=== PATIENT | female | born 1950 | race Caucasian/White ===

== ENCOUNTER 2016-10-19 08:29 | Inpatient (IN) | payer OTHER ==
[2016-10-08 10:51] VITALS: BMI 29.2
--- NOTE | 2016-10-19 07:43 | HP ---
Admitting History and Physical - Admission Chief Complaint: left hip osteoarthritis x years History of Present Illness: 66 year old female presents in regard to her left hip. Longstanding history of left hip osteoarthritis. Patient complains of left hip pain, limited ROM and difficulty ambulating. Patient has failed conservative treatment including PO medication and activity modification. At this point, patient would like to proceed with a left total hip arthroplasty (MAKOplasty). - Past Medical History Heme/Onc: Yes: B12 Deficiency Endocrine: Yes: Hypothyroidism, Osteopenia - Advance Directives Advance Directives: Yes: Health Care Proxy - Smoking History Smoking history: Former smoker Have you smoked in the past 12 months: No If you are a former smoker, when did you quit?: 1989 - Alcohol/Substance Use Hx Alcohol Use: No Home Medications - Allergies Allergies/Adverse Reactions: Allergies Allergy/AdvReac Type Severity Reaction Status Date / Time latex Allergy Verified 10/08/16 10:33 pet dander Allergy Uncoded 10/08/16 10:51 - Home Medications Home Medications: Ambulatory Orders Calcium/D3/Mag Ox/Dice Maker/Félix/Zn [Caltrate+D3 Plus Mineral Minis] 1 each PO BID 05/16 Cholecalciferol (Vitamin D3) [Vitamin D3] 5,000 unit PO DAILY 10/08/16 Chromium Picolinate 200 mcg PO DAILY 10/08/16 Cyanocobalamin (Vitamin B-12) [Vitamin B12] 5,000 mcg PO DAILY 10/08/16 Levothyroxine [Synthroid -] 125 mcg PO DAILY 10/08/16 [place]-3S/Dha/Epa/Fish Oil [[place]-3 Fish Oil 1,000 mg Sfgl] 1 each PO BID Ubidecarenone/Vitamin E Mixed [Aml55-Rnj E 200 mg-20 Unit Sfg] 1 each PO DAILY 10/08/16 Review of Systems - Review of Systems Musculoskeletal: reports: Decreased ROM (Left hip), Joint Pain Physical Examination Constitutional: Yes: Well Nourished, No Distress Eyes: Yes: Conjunctiva Clear HENT: Yes: Atraumatic, Normocephalic Neck: Yes: Supple Cardiovascular: Yes: Regular Rate and Rhythm Respiratory: Yes: Regular Gastrointestinal: Yes: Soft ...Rectal Exam: Yes: Deferred Musculoskeletal: Yes: Joint Stiffness (limited ROM left hip) Assessment/Plan 66 year old female with longstanding left hip osteoarthritis. Patient has failed conservative treatment. Proceed with a left total hip arthroplasty ( MAKOplasty).
[2016-10-19] MEDS ORDERED: ROPIVICAINE 0.2%/MORPH PF/KETOROLAC - 51ML DISP.SYRINGE IA ONE ×3 (10:00→14:52)
[2016-10-19] MEDS ORDERED: TRANEXAMIC ACID 1000 MG/10 ML VIAL IVPUSH ONE (10:00)
[2016-10-19] MEDS ORDERED: CEFAZOLIN 1 GM/D5W 50 ML IVPB ONE (10:00)
[2016-10-19] MEDS: GABAPENTIN 300 MG CAPSULE (FP) PO ONE ×2 (10:15→15:39)
[2016-10-19] MEDS: CELECOXIB 200 MG CAPSULE PO ONE ×2 (10:15→15:39)
[2016-10-19] MEDS: oxyCODONE HCL 10 MG SUSTAINED ACTING TABLET PO ONE ×2 (10:15→15:39)
[2016-10-19] MEDS ORDERED: VANCOMYCIN 1,000 MG VIAL (RESTRICTED TO ID ONLY) ONE (10:24)
[2016-10-19] MEDS ORDERED: ceFAZolin SODIUM 1 GM VIAL ONE ×2 (10:24→11:58)
[2016-10-19] MEDS ORDERED: TRANEXAMIC ACID 1000 MG/10 ML VIAL ONE (10:24)
[2016-10-19] MEDS ORDERED: DEXAMETHASONE SOD PHOSPHATE/PF 10 MG/ML SDV ONE (10:36)
[2016-10-19] MEDS ORDERED: ROPIVACAINE HCL 0.5% 30ML VIAL ONE (10:37)
[2016-10-19] MEDS ORDERED: MIDAZOLAM HCL 2 MG/2 ML SINGLE DOSE VIAL ONE (10:37)
[2016-10-19] MEDS ORDERED: BUPIVACAINE HCL/PF 0.5% (5MG/ML) 10 ML VIAL ONE (11:14)
[2016-10-19] MEDS ORDERED: PROPOFOL 20 ML ONE ×2 (11:16)
[2016-10-19] MEDS ORDERED: ePHEDrine SULFATE 50 MG/1 ML AMPULE ONE (12:03)
[2016-10-19] MEDS ORDERED: SUCCINYLCHOLINE CHLORIDE 200 MG/10 ML VIAL ONE (12:05)
[2016-10-19] MEDS ORDERED: ONDANSETRON 4 MG/2 ML VIAL ONE ×2 (12:17)
[2016-10-19] MEDS ORDERED: oxyCODONE HCL 5 MG TABLET PO PRN ×2 (12:41)
[2016-10-19] MEDS ORDERED: SODIUM CHLORIDE 0.9% P/F 10 ML VIAL IJ ONE (13:54)
[2016-10-19] MEDS ORDERED: TRANEXAMIC ACID 1000 MG/10 ML VIAL IVPB ONE (14:19)
[2016-10-19] MEDS ORDERED: VANCOMYCIN 1,000 MG VIAL (RESTRICTED TO ID ONLY) IVPB ONE (14:20)
--- NOTE | 2016-10-19 15:08 | OP ---
Operative Note - Note: Operative Date: 10/19/16 Pre-Operative Diagnosis: left hip OA Operation: left DONNA Post-Operative Diagnosis: Same as Pre-op Surgeon: Messi Bonilla Curing Machine Operator: Amy Shook Anesthesia: Spinal Estimated Blood Loss (mls): 200
[2016-10-19] MEDS ORDERED: MAGNESIUM HYDROX 2400MG/30ML ORAL SUSPENSION 30 ML CUP PO PRN (15:13)
[2016-10-19] MEDS ORDERED: MAG HYDROX/AL HYDROX/SIMETH 30 ML UNIT-DOSE CUP PO PRN (15:13)
[2016-10-19] MEDS ORDERED: LACTATED RINGERS SOLUTION 1,000 ML IV SCH (15:15)
[2016-10-19] MEDS ORDERED: KETOROLAC TROMETHAMINE 30 MG/1 ML VIAL ONE (15:36)
[2016-10-19] MEDS ORDERED: traMADol HCL 50 MG TABLET ONE (15:37)
[2016-10-19] MEDS: KETOROLAC TROMETHAMINE 30 MG/1 ML VIAL IVPUSH SCH ×2 (15:40→20:21)
[2016-10-19] MEDS ORDERED: ONDANSETRON 4 MG/2 ML VIAL IVPB PRN (15:40)
[2016-10-19] MEDS: traMADol HCL 50 MG TABLET PO SCH ×2 (15:54→20:23)
[2016-10-19] MEDS ORDERED: ACETAMINOPHEN 1000 MG/100 ML VIAL (NON FORMULARY) IVPB ONE (16:00)
[2016-10-19] MEDS: CEFAZOLIN 1 GM/D5W 50 ML IVPB SCH (20:21)
--- NOTE | 2016-10-19 20:31 | SPEC ---
DATE OF OPERATION: 10/19/2016 PREOPERATIVE DIAGNOSIS: Left hip osteoarthritis. POSTOPERATIVE DIAGNOSIS: Left hip osteoarthritis. PROCEDURE: Left total hip replacement with Makoplasty, robotic navigation. ATTENDING: Mere Dorsey M.D. ASSEMBLER FISHING FLOATS: Joann Gonzalez ANESTHESIA: Spinal plus sedation. ESTIMATED BLOOD LOSS: 200 mL. COMPLICATIONS: None. SPECIMENS: Resected bone was sent for pathology analysis. DISPOSITION: The patient was transferred to the PACU in stable condition. IMPLANTS USED: Angus Accolade 2 size 5, 127-degree femoral component, 48-mm acetabular component, MDM bipolar head ball, and 40-mm and 16-mm acetabular component screws. INDICATION: This is a 66-year-old female who presented to the office complaining of severe hip pain. She was seen and examined by Dr. Dorsey, and diagnosed with severe left hip osteoarthritis. She had failed conservative management with medications and physical therapy and was indicated for a left total hip replacement. The risks, benefits, and alternatives of the procedure were explained to the patient and her in great detail using the video conference publications designer system. They elected to proceed with the surgery. On the day of surgery, the patient was taken to the operating room and placed on the OR table. Spinal anesthesia was administered by the anesthesiologist. The patient was then positioned in the lateral decubitus position on the table and all bony prominences were padded. An axillary roll was placed. The operative hip was then prepped and draped in the usual sterile fashion and intravenous antibiotics were given for infection prophylaxis. A surgical time-out was then performed with the team, and the patients identity, procedure, side, availability of implants, and the administration of antibiotics was confirmed. An approximately 15cm longitudinal incision was made through the skin centered on the greater trochanter of the hip. This dissection was carried down through the subcutaneous tissues to the deep fascia. This fascia was then incised and a cobra was placed around the inferior femoral neck. Electrocautery was used to reflect the anterior 40% of the gluteus medius and minimus starting at the musculotendinous junction and leaving a cuff for closure. This was reflected to reveal the capsule of the hip joint. An anterior capsulectomy was performed and the femoral head and neck was visualized. Grade 4 changes were noted diffusely throughout the joint. At this point, three small stab incisions were made superior to the main incision along the iliac crest. Three self-drilling Arnul[place] pins were then placed and the [employer] pelvic array was attached. Reference points on the limb were then entered into the robotic device and the limb length deficiency, offset, and femoral neck resection level were then calculated by the software. The hip was then dislocated with traction and external rotation, an oscillating saw was used to make the femoral neck cut at the level previously templated, and the femoral head was removed. Attention was then turned to the acetabulum. Retractors were then placed around the acetabulum and the labrum was removed. An acetabular checkpoint pin and the [employer] software was used to register the contours of the acetabulum. The acetabulum was then reamed in a single stage to the preoperatively templated size using the [employer] robotic arm. The appropriately sized cup was then impacted and had solid fixation as well as the preset inclination and version of 40 and 20 degrees, respectively. A polyethylene liner was then placed in the cup. Attention was then turned back to the femur, which was externally rotated for improved visualization. A femoral neck elevator was used to present the femoral neck cut, a box osteotome was used to enter the femoral canal, and a canal finder was used to go down the femoral shaft. The [place] broaches were used sequentially until the optimal scratch fit was achieved. This correlated to the preoperatively templated size. From here, several different offset head and neck configurations were tested until excellent stability and length was obtained. These measurements were quantified using the [employer] software. All trial components were then removed, the femur was copiously irrigated, and the final components were placed. Leg length and stability were checked again and found to be excellent. Irrigation was performed again. Wound closure was started by repairing the abductor muscles with a No. 2 Fiberwire stitch in a [place] configuration passed through bone tunnels in the greater trochanter and tied over a bony bridge. This repair was then reinforced with a 0 VLoc 180 barbed suture. Next, No. 1 Polysorb and 0 VLoc 180 was used to close the fascia. The deep subcutaneous tissue was closed with No. 1 Polysorb sutures, and 2-0 Polysorb was used for the superficial subcutaneous tissue. The skin was closed using both 3-0 VLoc 90 suture in a running subcuticular fashion and SwiftSet skin adhesive. The [place] array and pins were removed from the iliac crest and the stab incision sites were irrigated and closed with 4-0 Polysorb sutures and SwiftSet skin adhesive. Once this was completed a sterile dressing was applied. The patient was then awakened and taken to the PACU in stable condition. MERE DORSEY M.D. [id number]
[2016-10-19] MEDS: ASCORBIC ACID 500 MG TABLET (FP) PO SCH (21:27)
[2016-10-19] MEDS: SENNOSIDES/DOCUSATE COMBO (SENNA PLUS) TABLET (UD) PO SCH (21:27)
[2016-10-19] MEDS: ACETAMINOPHEN 325 MG TABLET (FP) PO SCH (21:27)
[2016-10-19] MEDS: GABAPENTIN 300 MG CAPSULE (FP) PO SCH (21:27)
[2016-10-19] MEDS: CELECOXIB 200 MG CAPSULE PO SCH (21:27)
[2016-10-19] MEDS: oxyCODONE HCL 10 MG SUSTAINED ACTING TABLET PO SCH (21:28)
[2016-10-19] MEDS ORDERED: GABAPENTIN 300 MG CAPSULE (FP) PO SCH (22:00)
[2016-10-20] MEDS: KETOROLAC TROMETHAMINE 30 MG/1 ML VIAL IVPUSH SCH ×2 (02:40→08:28)
[2016-10-20] MEDS: traMADol HCL 50 MG TABLET PO SCH ×4 (02:40→21:12)
[2016-10-20] MEDS: CEFAZOLIN 1 GM/D5W 50 ML IVPB SCH (03:04)
[2016-10-20] MEDS: ACETAMINOPHEN 325 MG TABLET (FP) PO SCH ×4 (03:09→21:12)
[2016-10-20] MEDS: LEVOTHYROXINE NA 125 MCG TABLET (FP) PO SCH (06:21)
[2016-10-20] MEDS: ASPIRIN 325 MG TABLET PO SCH (08:28)
[2016-10-20 08:42] LABS: CALCIUM 8.9 mg/dl (8.4-10.2); CREATININE 0.9 mg/dl (0.6-1.3)
[2016-10-20 08:48] LABS: MCH 29.8 pg (25.7-33.7); MCHC 32.8 g/dl (32.0-36.0); MEAN PLT VOLUME 7.7 fl (7.5-11.1); PLATELET COUNT 295 K/MM3 (134-434); RDW 11.7 % (11.6-15.6); WHITE BLOOD COUNT 9.4 K/mm3 (4.0-10.0)
--- NOTE | 2016-10-20 09:42 | PN ---
Progress Note (short form) - Note Progress Note: 66 POD1 s/p left total hip replacement under spinal anesthetic doing well. Pt states that pain is well controlled, AVSS, pt reports no anesthetic complications. Sensory and motor function intact in both lower extremities.
[2016-10-20] MEDS: MULTIVITAMINS (DAILY MVI) TABLET (FP) PO SCH (09:54)
[2016-10-20] MEDS: ASCORBIC ACID 500 MG TABLET (FP) PO SCH ×2 (09:54→21:12)
[2016-10-20] MEDS: SENNOSIDES/DOCUSATE COMBO (SENNA PLUS) TABLET (UD) PO SCH ×2 (09:55→21:11)
[2016-10-20] MEDS: oxyCODONE HCL 10 MG SUSTAINED ACTING TABLET PO SCH ×2 (09:56→22:36)
[2016-10-20] MEDS: PANTOPRAZOLE 40 MG TABLET (FP) PO SCH (09:56)
[2016-10-20] MEDS: CELECOXIB 200 MG CAPSULE PO SCH ×2 (09:57→21:12)
[2016-10-20] MEDS: GABAPENTIN 300 MG CAPSULE (FP) PO SCH ×2 (09:58→21:13)
[2016-10-21] MEDS: traMADol HCL 50 MG TABLET PO SCH ×3 (03:00→10:06)
[2016-10-21] MEDS: ACETAMINOPHEN 325 MG TABLET (FP) PO SCH ×2 (04:00→10:06)
[2016-10-21 05:33] VITALS: BP 121/58; PULSE 74; TEMP 98.6
[2016-10-21] MEDS: LEVOTHYROXINE NA 125 MCG TABLET (FP) PO SCH (06:44)
[2016-10-21] MEDS: ASPIRIN 325 MG TABLET PO SCH (07:41)
--- NOTE | 2016-10-21 08:29 | PN ---
Progress Note (short form) - Note Progress Note: This note is for Wednesday10/20/16 Pt seen and examined by me Wednesday evening. Pt's daughter Judith used as commercial green building designer on iPad using [employer]. Doing well. No complaints. Pain 09/08. Walked several hundred feet with PT. AVSS Laboratory Tests 10/20/16 10/20/16 08:05 08:05 WBC 9.4 Hgb 11.4 Hct 34.7 Plt Count 295 Sodium 136 Potassium 4.4 Chloride 102 Carbon Dioxide 28 Anion Gap 6 L BUN 20 H Creatinine 0.9 Random Glucose 109 H Calcium 8.9 Gen: NAD LLE: c/d/i, NVID A/P 66yo female POD#1 s/p L DONNA 1. PT/OOB - WBAT LLE 2. Plan for d/c home tomorrow
--- NOTE | 2016-10-21 08:30 | PN ---
Progress Note (short form) - Note Progress Note: This note is for Wednesday10/21/16 Pt seen and examined this morning. Pad/paper used for communication. Doing well. No complaints. AVSS Selected Entries 10/21/16 05:32 Temperature 98.6 F Pulse Rate 74 Respiratory 19 Rate Blood Pressure 121/58 O2 Sat by Pulse 96 Oximetry (%) LABS PENDING Gen: NAD LLE: c/d/i, NVID A/P 66yo female POD#2 s/p L DONNA 1. PT/OOB - WBAT LLE 2. d/c home today
[2016-10-21 08:32] LABS: MCH 29.1 pg (25.7-33.7); MCHC 32.1 g/dl (32.0-36.0); MEAN CELL VOLUME 90.6 fl (80-96); PLATELET COUNT 278 K/MM3 (134-434); RDW 11.7 % (11.6-15.6); WHITE BLOOD COUNT 8.1 K/mm3 (4.0-10.0)
[2016-10-21 09:06] LABS: CALCIUM 8.6 mg/dl (8.4-10.2); CREATININE 0.8 mg/dl (0.6-1.3)
[2016-10-21] MEDS: oxyCODONE HCL 10 MG SUSTAINED ACTING TABLET PO SCH (10:06)
[2016-10-21] MEDS: CELECOXIB 200 MG CAPSULE PO SCH (10:07)
[2016-10-21] MEDS: GABAPENTIN 300 MG CAPSULE (FP) PO SCH (10:08)
[2016-10-21] MEDS: PANTOPRAZOLE 40 MG TABLET (FP) PO SCH (10:08)
[2016-10-21] MEDS: SENNOSIDES/DOCUSATE COMBO (SENNA PLUS) TABLET (UD) PO SCH (10:08)
[2016-10-21] MEDS: MULTIVITAMINS (DAILY MVI) TABLET (FP) PO SCH (10:08)
[2016-10-21] MEDS: ASCORBIC ACID 500 MG TABLET (FP) PO SCH (10:08)
--- NOTE | 2016-10-22 16:19 | PATH ---
Surgical Pathology Report Patient Name: ELIDA DAWKINS Med. Rec. #: [id number] /Age/Gender: 1950 (Age: 66) / F Account: [id number] Location: [facility] Taken: 10/20/2016 Received: 10/20/2016 Reported: 10/22/2016 Physicians: Messi Bonilla M.D. Specimen(s) Received LEFT HIP FEMORAL HEAD Clinical History Left hip osteoarthritis Final Diagnosis FEMORAL HEAD, LEFT, TOTAL HIP REPLACEMENT (MAKOPLASTY): DEGENERATIVE JOINT DISEASE. Electronically Signed Bjorn Hannah M.D. Gross Description Received in formalin, labeled "left femoral head" is a 4.0 x 3.8 x 3.8 cm. femoral head with a 1 cm in length portion of femoral neck attached. The margin of resection is smooth. There is a 4.5 cm in greatest dimension area of eburnation present. The remaining articular surface is everett-yellow and granular. The underlying trabecular bone is everett-yellow and heterogeneous. A sales representative door to door section is submitted in one cassette, following decalcification. 10/21/201610/21/2016
== END 2016-10-21 13:46 | disposition home health service (06) | DRG 470 ==
LOC: FM/S 08:29
PROVIDERS: ADMIT Student in an Organized Health Care Education/Training Program; ATTEND Student in an Organized Health Care Education/Training Program
PROC: 8E0W0CZ Robotic Assisted Procedure of Trunk Region, Open Approach (ICD-10-PCS; 2016-10-19)
PROC: 0SRB0JZ Replacement of Left Hip Joint with Synthetic Substitute, Open Approach (ICD-10-PCS; principal; 2016-10-19 12:20)
DX: M16.12 Unilateral primary osteoarthritis, left hip (principal); E03.9 Hypothyroidism, unspecified; M85.88 Other specified disorders of bone density and structure, other site; E53.8 Deficiency of other specified B group vitamins; Z87.891 Personal history of nicotine dependence
CPT/HCPCS: 36415; 73502-TC-LT; 80048; 85027; 88304-TC; 88311-TC; 94010; 94760; 97116-GP; 97162-PG

== ENCOUNTER 2018-06-16 09:07 | Inpatient (IN) | payer OTHER ==
[2018-06-06 14:18] VITALS: BMI 29.3
--- NOTE | 2018-06-16 07:48 | HP ---
Admitting History and Physical - Admission Chief Complaint: right hip osteoarthritis x years History of Present Illness: 67 year old female presents today regarding her right hip. Longstanding history of right hip osteoarthritis. Patient complains of pain, limited ROM, difficulty ambulating and difficulty with ADLs. Patient has failed conservative treatment measures including PO medication, activity medication, injections and exercise program. At this point, patient would like to proceed with a right total hip arthroplasty, MAKOplasty. History Source: Patient - Past Medical History Heme/Onc: Yes: B12 Deficiency Endocrine: Yes: Hypothyroidism, Osteopenia - Past Surgical History Additional Past Surgical History: See written history & physical. - Smoking History Smoking history: Former smoker Have you smoked in the past 12 months: No If you are a former smoker, when did you quit?: 1989 - Alcohol/Substance Use Hx Alcohol Use: No Home Medications - Allergies Allergies/Adverse Reactions: Allergies Allergy/AdvReac Type Severity Reaction Status Date / Time latex Allergy Rash Verified 06/06/18 13:54 pet dander Allergy Uncoded 10/19/16 09:41 - Home Medications Home Medications: Ambulatory Orders Calcium/D3/Mag Ox/[place]/Félix/Zn [Caltrate+D3 Plus Mineral Minis] 1 each PO BID 05/16 Cholecalciferol (Vitamin D3) [Vitamin D3] 5,000 unit PO DAILY 10/08/16 Chromium Picolinate 200 mcg PO DAILY 10/08/16 Cyanocobalamin (Vitamin B-12) [Vitamin B12] 5,000 mcg PO DAILY 10/08/16 Levothyroxine [Synthroid -] 125 mcg PO DAILY 10/08/16 [place]-3S/Dha/Epa/Fish Oil [[place]-3 Fish Oil 1,000 mg Sfgl] 1 each PO BID Ubidecarenone/Vitamin E Mixed [Dqi23-Nuh E 200 mg-20 Unit Sfg] 1 each PO DAILY 10/08/16 Review of Systems - Review of Systems Musculoskeletal: reports: Decreased ROM (right hip), Joint Pain (right hip) Physical Examination Constitutional: Yes: Well Nourished, No Distress Eyes: Yes: Conjunctiva Clear HENT: Yes: Atraumatic, Normocephalic Neck: Yes: Supple Cardiovascular: Yes: Regular Rate and Rhythm Respiratory: Yes: Regular Gastrointestinal: Yes: Soft ...Rectal Exam: Yes: Deferred Musculoskeletal: Yes: Joint Stiffness (right hip) Assessment/Plan 67 year old female presents today regarding her right hip. Longstanding history of right hip osteoarthritis. Patient complains of pain, limited ROM, difficulty ambulating and difficulty with ADLs. Patient has failed conservative treatment measures including PO medication, activity medication, injections and exercise program. At this point, patient would like to proceed with a right total hip arthroplasty, MAKOplasty. Pros, cons, risks, benefits and alternatives of a right total hip arthroplasty, MAKOplasty, were discussed with the patient at length. Patient confirms his understanding and consents to proceed with a right total hip arthroplasty, MAKOplasty.
[~2018-06-16 09:07] MED LIST: CEFAZOLIN 2 GM in DEXTROSE 5%-WATER - 50 ML IVPB ONE; PANTOPRAZOLE 40 MG TABLET (FP) PO ONE; ROPIVICAINE 0.2%/MORPH PF/KETOROLAC - 51ML DISP.SYRINGE IA ONE; TRANEXAMIC ACID 1000 MG/10 ML VIAL IVPUSH ONE
[2018-06-16] MEDS ORDERED: PANTOPRAZOLE 40 MG TABLET (FP) ONE (10:19)
[2018-06-16] MEDS ORDERED: oxyCODONE HCL 10 MG SUSTAINED ACTING TABLET ONE (10:19)
[2018-06-16] MEDS ORDERED: CELECOXIB 200 MG CAPSULE ONE (10:20)
[2018-06-16] MEDS ORDERED: GABAPENTIN 300 MG CAPSULE (FP) ONE (10:20)
[2018-06-16] MEDS: GABAPENTIN 300 MG CAPSULE (FP) PO ONE ×2 (10:50→18:03)
[2018-06-16] MEDS: CELECOXIB 200 MG CAPSULE PO ONE ×2 (10:50→18:03)
[2018-06-16] MEDS: oxyCODONE HCL 10 MG SUSTAINED ACTING TABLET PO ONE ×2 (10:50→18:03)
[2018-06-16] MEDS ORDERED: DEXAMETHASONE SOD PHOSPHATE/PF 10 MG/ML SDV ONE (11:34)
[2018-06-16] MEDS ORDERED: BUPIVACAINE HCL/PF (5 MG/ML) 30 ML VIAL IJ ONE (11:35)
[2018-06-16] MEDS ORDERED: LIDOCAINE 1% P/F 10 MG/ML VIAL ONE (11:35)
[2018-06-16] MEDS ORDERED: MIDAZOLAM HCL 2 MG/2 ML SINGLE DOSE VIAL ONE (11:35)
[2018-06-16] MEDS ORDERED: TRANEXAMIC ACID 1000 MG/10 ML VIAL ONE (11:44)
[2018-06-16] MEDS ORDERED: VANCOMYCIN 1,000 MG VIAL (RESTRICTED TO ID ONLY) ONE (11:44)
[2018-06-16] MEDS ORDERED: ceFAZolin SODIUM 1 GM VIAL ONE ×3 (11:44→18:04)
[2018-06-16] MEDS ORDERED: ROPIVICAINE 0.2%/MORPH PF/KETOROLAC - 51ML DISP.SYRINGE IA ONE ×2 (11:52→14:36)
[2018-06-16] MEDS ORDERED: SODIUM CHLORIDE 0.9% P/F 10 ML VIAL IJ ONE (12:36)
[2018-06-16] MEDS ORDERED: DEXAMETHASONE SOD PHOSPHATE 4 MG/1 ML VIAL ONE (12:41)
[2018-06-16] MEDS ORDERED: ONDANSETRON 4 MG/2 ML VIAL ONE (12:41)
[2018-06-16] MEDS ORDERED: DEXMEDETOMIDINE HCL 200 MCG/2 ML ML IVPB ONE (13:43)
[2018-06-16] MEDS ORDERED: TRANEXAMIC ACID 1000 MG/10 ML VIAL IVPB ONE (14:36)
[2018-06-16] MEDS ORDERED: VANCOMYCIN 1,000 MG VIAL (RESTRICTED TO ID ONLY) IVPB ONE (14:37)
[2018-06-16] MEDS ORDERED: ePHEDrine SULFATE 50 MG/1 ML AMPULE ONE (14:59)
[2018-06-16] MEDS ORDERED: ONDANSETRON 4 MG/2 ML VIAL IVPUSH PRN ×2 (15:46→16:26)
[2018-06-16] MEDS ORDERED: oxyCODONE HCL 5 MG TABLET PO PRN ×2 (15:47)
--- NOTE | 2018-06-16 16:22 | OP ---
Operative Note - Note: Operative Date: 06/16/18 Pre-Operative Diagnosis: right hip OA Operation: Right ADAM DONNA Post-Operative Diagnosis: Same as Pre-op Surgeon: Messi Bonilla Electrotyper Helper: Amy Shook Anesthesia: Spinal Estimated Blood Loss (mls): 250
[2018-06-16] MEDS ORDERED: MAG HYDROX/AL HYDROX/SIMETH 30 ML UNIT-DOSE CUP PO PRN (16:26)
[2018-06-16] MEDS ORDERED: MAGNESIUM HYDROX 2400MG/30ML ORAL SUSPENSION 30 ML CUP PO PRN (16:26)
[2018-06-16] MEDS ORDERED: LACTATED RINGERS SOLUTION 1,000 ML IV SCH (16:30)
[2018-06-16] MEDS ORDERED: ACETAMINOPHEN 1000 MG/100 ML VIAL (NON FORMULARY) IVPB ONE ×2 (16:36→16:59)
--- NOTE | 2018-06-16 16:49 | SPEC ---
DATE OF OPERATION: 06/16/2018 PREOPERATIVE DIAGNOSIS: Right hip osteoarthritis. POSTOPERATIVE DIAGNOSIS: Right hip osteoarthritis. PROCEDURE: Right total hip replacement with MAKOplasty robotic navigation. ATTENDING: Mere Dorsey MD TUBER MACHINE OPERATOR: MICHELLE Gonzalez ANESTHESIA: Spinal plus sedation. ESTIMATED BLOOD LOSS: 250 mL COMPLICATIONS: None. DISPOSITION: The patient was transferred to the PACU in stable condition. IMPLANTS USED: [place] Accolade II size 6 femoral component, Angus Tritanium 48-mm acetabular component with 30- and 25-mm acetabular screws, MDM bipolar head ball. INDICATIONS: This is a 67-year-old female who is a long-time patient and presented with bilateral hip severe osteoarthritis. She underwent a left total hip replacement with MAKOplasty robotic navigation in September 2016, and did well. She continued to have right hip pain and ambulatory dysfunction which was not effectively treated with nonoperative treatments. She was, therefore, indicated for a right total hip replacement with MAKOplasty robotic navigation. The risks, benefits, and alternatives to the procedure were explained to the patient in great detail, and she elected to proceed with surgery. On the day of surgery, the patient was taken to the operating room and placed on the OR table. Spinal anesthesia was administered by the anesthesiologist. The patient was then positioned in the lateral decubitus position on the table and all bony prominences were padded. An axillary roll was placed. The operative hip was then prepped and draped in the usual sterile fashion and intravenous antibiotics were given for infection prophylaxis. A surgical time-out was then performed with the team, and the patients identity, procedure, side, availability of implants, and the administration of antibiotics were confirmed. An approximately 15-cm longitudinal incision was made through the skin centered on the greater trochanter of the hip. This dissection was carried down through the subcutaneous tissues to the deep fascia. This fascia was then incised and a Cobra was placed around the inferior femoral neck. Electrocautery was used to reflect the anterior 40% of the gluteus medius and minimus starting at the musculotendinous junction and leaving a cuff for closure. This was reflected to reveal the capsule of the hip joint. An anterior capsulectomy was performed and the femoral head and neck were visualized. Grade 4 changes were noted diffusely throughout the joint. At this point, three small stab incisions were made superior to the main incision along the iliac crest. Three self-drilling Steinmann pins were then placed and the prollie pelvic array was attached. Reference points on the limb were then entered into the robotic device and the limb length deficiency, offset, and femoral neck resection level were then calculated by the software. The hip was then dislocated with traction and external rotation. An oscillating saw was used to make the femoral neck cut at the level previously templated, and the femoral head was removed. Attention was then turned to the acetabulum. Retractors were then placed around the acetabulum and the labrum was removed. An acetabular checkpoint pin and the [employer]ie software were used to register the contours of the acetabulum. The acetabulum was then reamed in a single stage to the preoperatively templated size using the [place] robotic arm. The appropriately sized cup was then impacted and had solid fixation as well as the preset inclination and version of 40 and 20 degrees, respectively. A polyethylene liner was then placed in the cup. Attention was then turned back to the femur, which was externally rotated for improved visualization. A femoral neck elevator was used to present the femoral neck cut, a box osteotome was used to enter the femoral canal, and a canal finder was used to go down the femoral shaft. The [place] broaches were used sequentially until the optimal scratch fit was achieved. This correlated with the preoperatively templated size. From here, several different offset head and neck configurations were tested until excellent stability and length were obtained. These measurements were quantified using the prollie software. All trial components were then removed, the femur was copiously irrigated, and the final components were placed. Leg length and stability were checked again and found to be excellent. Irrigation was performed again. Wound closure was started by repairing the abductor muscles with a no. 2 FiberWire stitch in a [place] configuration passed through bone tunnels in the greater trochanter and tied over a bony bridge. This repair was then reinforced with a 0 V-Loc 180 barbed suture. Next, no. 1 Polysorb and 0 V-Loc 180 were used to close the fascia. The deep subcutaneous tissue was closed with no. 1 Polysorb sutures, and 2-0 Polysorb was used for the superficial subcutaneous tissue. The skin was closed using both 3-0 V-Loc 90 suture in a running subcuticular fashion and SwiftSet skin adhesive. The [place] array and pins were removed from the iliac crest and the stab incision sites were irrigated and closed with 4-0 Polysorb sutures and SwiftSet skin adhesive. Once this was completed, a sterile dressing was applied. The patient was then awakened and taken to the PACU in stable condition. ADDENDUM: After final implants were placed, a 3-minute dilute Betadine lavage was performed. Following this, the wound was thoroughly irrigated with normal saline via pulsatile lavage, and wound closure was begun. MERE DORSEY M.D. [id number]
[2018-06-16] MEDS: traMADol HCL 50 MG TABLET PO SCH ×3 (17:00→22:56)
[2018-06-16] MEDS ORDERED: KETOROLAC TROMETHAMINE 30 MG/1 ML VIAL IVPUSH ONE (17:02)
[2018-06-16] MEDS ORDERED: KETOROLAC TROMETHAMINE 30 MG/1 ML VIAL ONE (17:05)
[2018-06-16] MEDS ORDERED: ACETAMINOPHEN INJECTION 100 ML IVPB ONE (17:05)
[2018-06-16] MEDS ORDERED: traMADol HCL 50 MG TABLET ONE (17:06)
[2018-06-16] MEDS ORDERED: ceFAZolin SODIUM 1 GM VIAL IVPB ONE (18:05)
[2018-06-16] MEDS: ACETAMINOPHEN 325 MG TABLET (FP) PO SCH ×2 (18:05→22:19)
[2018-06-16] MEDS: LACTATED RINGERS SOLUTION 1,000 ML IV SCH (18:05)
[2018-06-16] MEDS: KETOROLAC TROMETHAMINE 30 MG/1 ML VIAL IVPUSH SCH ×2 (18:06→22:19)
[2018-06-16] MEDS: CEFAZOLIN 2 GM/D5W 2 GM/50 ML ML IVPB SCH (18:06)
[2018-06-16] MEDS: oxyCODONE HCL 10 MG SUSTAINED ACTING TABLET PO SCH (22:18)
[2018-06-16] MEDS: GABAPENTIN 300 MG CAPSULE (FP) PO SCH (22:18)
[2018-06-16] MEDS: SENNOSIDES/DOCUSATE COMBO (SENNA PLUS) TABLET (UD) PO SCH (22:18)
[2018-06-16] MEDS: CELECOXIB 200 MG CAPSULE PO SCH (22:18)
[2018-06-16] MEDS: ASCORBIC ACID 500 MG TABLET (FP) PO SCH (22:19)
[2018-06-17] MEDS: CEFAZOLIN 2 GM/D5W 2 GM/50 ML ML IVPB SCH (01:30)
[2018-06-17] MEDS ORDERED: DEXAMETHASONE SOD PHOSPHATE 10 MG/1 ML VIAL IVPB ONE (02:00)
[2018-06-17] MEDS: ACETAMINOPHEN 325 MG TABLET (FP) PO SCH ×4 (05:07→22:34)
[2018-06-17] MEDS: traMADol HCL 50 MG TABLET PO SCH ×4 (05:08→22:34)
[2018-06-17] MEDS: KETOROLAC TROMETHAMINE 30 MG/1 ML VIAL IVPUSH SCH ×2 (05:08→11:04)
[2018-06-17] MEDS: LEVOTHYROXINE NA 125 MCG TABLET (FP) PO SCH (07:11)
[2018-06-17 08:11] LABS: HEMATOCRIT 33.4 % (32.4-45.2); HEMOGLOBIN 11.5 GM/dl (10.7-15.3); MCH 31.4 pg (25.7-33.7); MCHC 34.6 g/dl (32.0-36.0); MEAN CELL VOLUME 90.7 fl (80-96); MEAN PLT VOLUME 7.8 fl (7.5-11.1); PLATELET COUNT 282 K/MM3 (134-434); RBC 3.68 M/mm3 (3.60-5.2); RDW 11.9 % (11.6-15.6); WHITE BLOOD COUNT 10.6 K/mm3 (4.0-10.8)
[2018-06-17 08:32] LABS: ANION GAP 3 MMOL/L (8-16); BLOOD UREA NITROGEN 19 mg/dl (7-18); CALCIUM 8.6 mg/dl (8.4-10.2); CHLORIDE 107 mmol/L (98-107); CO2 28 mmol/L (22-28); CREATININE 0.8 mg/dl (0.6-1.3); GLUCOSE,RANDOM 151 mg/dl (74-106); POTASSIUM 4.3 mmol/L (3.5-5.1); SODIUM 138 mmol/L (136-145)
[2018-06-17] MEDS: ASPIRIN 325 MG TABLET PO SCH (08:59)
--- NOTE | 2018-06-17 09:32 | PN ---
Progress Note (short form) - Note Progress Note: Post op day#1.S/p Right total hip replacement under spinal anesthesia with Right L2 plexus block uneventful.Patient stable and does not c/o pain.No any anesthesia related problem.Patient Dc from the anesthesia care.
[2018-06-17] MEDS: CELECOXIB 200 MG CAPSULE PO SCH ×2 (11:01→22:34)
[2018-06-17] MEDS: GABAPENTIN 300 MG CAPSULE (FP) PO SCH ×2 (11:01→22:35)
[2018-06-17] MEDS: MULTIVITAMINS (DAILY MVI) TABLET (FP) PO SCH (11:01)
[2018-06-17] MEDS: ASCORBIC ACID 500 MG TABLET (FP) PO SCH ×2 (11:01→22:33)
[2018-06-17] MEDS: SENNOSIDES/DOCUSATE COMBO (SENNA PLUS) TABLET (UD) PO SCH ×2 (11:02→22:35)
[2018-06-17] MEDS: oxyCODONE HCL 10 MG SUSTAINED ACTING TABLET PO SCH ×2 (11:02→22:34)
[2018-06-17] MEDS: PANTOPRAZOLE 40 MG TABLET (FP) PO SCH (11:03)
[2018-06-17] MEDS: LACTATED RINGERS SOLUTION 1,000 ML IV SCH (18:02)
--- NOTE | 2018-06-17 22:48 | PN ---
Progress Note (short form) - Note Progress Note: Pt seen and examined. Doing well. AVSS Selected Entries 06/17/18 06/17/18 06/17/18 18:00 19:57 22:00 Temperature 98.0 F 97.9 F Pulse Rate 68 55 L Respiratory 18 17 16 Rate Blood Pressure 101/49 L 99/45 L O2 Sat by Pulse 96 94 L Oximetry (%) Oxygen Delivery Room Air Room Air Method Laboratory Tests 06/17/18 06/17/18 07:35 07:35 WBC 10.6 Hgb 11.5 Hct 33.4 Plt Count 282 Sodium 138 Potassium 4.3 Chloride 107 Carbon Dioxide 28 Anion Gap 3 L BUN 19 H Creatinine 0.8 Creat Clearance w eGFR > 60 Random Glucose 151 H D Calcium 8.6 Gen: NAD RLE: c/d/i, NVID A/P POD#1 s/p R DONNA PT/OOB D/C home in AM after PT
--- NOTE | 2018-06-17 22:52 | DS ---
Physical Examination Vital Signs: Vital Signs Temperature 97.9 F 06/17/18 22:00 Pulse Rate 55 L 06/17/18 22:00 Respiratory Rate 16 06/17/18 22:00 Blood Pressure 99/45 L 06/17/18 22:00 O2 Sat by Pulse Oximetry (%) 94 L 06/17/18 22:00 Labs: CBC, BMP 06/17/18 07:35 06/17/18 07:35 Discharge Summary Reason For Visit: OSTEOARTHRITIS RIGHT HIP Current Active Problems Osteoarthritis of right hip (Acute) Procedures: Principal: right ADAM DONNA Hospital Course: Admitted for elective surgery. Procedure performed without complications. Pt received postoperative antibiotic prophylaxis and DVT ppx. Ambulated with physical therapy. Stable for discharge home with outpatient followup. Condition: Stable - Instructions Diet, Activity, Other Instructions: Dr Bonilla - Hip Replacement Instructions Keep the Aquacel dressing on until removed by Dr. Bonilla in 10-14 days - it is antibacterial and waterproof and you can shower with it on. Call the office for a follow-up appointment with Dr. Bonilla in 10-14 days. ~ Take one Aspirin 325mg daily for 6 weeks to prevent blood clots in your legs. Take one Pantoprazole 40mg daily for 6 weeks to protect against heartburn and ulcers. Take Cephalexin (antibiotic) 3x/day for 10 days to help prevent skin infection. Take Celebrex 200mg twice daily for 30 days to reduce swelling and inflammation. Take a multivitamin, stool softener and extra Vitamin C supplement daily. For pain: *Mild pain (1-3/10): Take 1 Tramadol tablet every 4 hours as needed. Moderate pain (4-6/10): Take 1 Tramadol tablet and 1 Percocet tablet every 4 hours as needed. Severe pain (7-10/10): Take 1 Tramadol tablet and 2 Percocet tablets every 4 hours as needed. Activity: You can put as much weight on the operative leg as you want. For the first 6 weeks, all you need to do is walk around the house, go up/down stairs, and sit down/get up. After 6 weeks when everything is healed (and bone has grown into the implant) you will be sent for more intensive outpatient physical therapy. Always use a walker or cane for balance and to prevent falls. Expect to see swelling / bruising from the operative site all the way down to your toes. Wear the Compression stocking on the operative side during the day to minimize how much swelling there is in your foot/ankle. Don't wear the stocking at night. You don't have to wear the stocking on the other side. Disposition: VNS/HOME HEALTH CARE - Home Medications Comprehensive Discharge Medication List: Ambulatory Orders Calcium/D3/Mag Ox/Web Mobile Designer/Félix/Zn [Caltrate+D3 Plus Mineral Minis] 1 each PO BID 05/16 Cholecalciferol (Vitamin D3) [Vitamin D3] 5,000 unit PO DAILY 10/08/16 Chromium Picolinate 200 mcg PO DAILY 10/08/16 Cyanocobalamin (Vitamin B-12) [Vitamin B12] 5,000 mcg PO DAILY 10/08/16 Levothyroxine [Synthroid -] 125 mcg PO DAILY 10/08/16 [place]-3S/Dha/Epa/Fish Oil [[place]-3 Fish Oil 1,000 mg Sfgl] 1 each PO BID Ubidecarenone/Vitamin E Mixed [Wnd22-Sff E 200 mg-20 Unit Sfg] 1 each PO DAILY 10/08/16 Ascorbic Acid [Vitamin C -] 500 mg PO BID tablet 06/17/18 Aspirin [ASA -] 325 mg PO DAILY@0800 tablet 06/17/18 Celecoxib [CeleBREX -] 200 mg PO BID #60 capsule 06/17/18 Cephalexin Monohydrate [Keflex -] 500 mg PO TID #30 capsule 06/17/18 Multivitamins [Multivit ([facility] Formulary)] 1 tab PO DAILY tab 06/17/18 Oxycodone HCl/Acetaminophen [Percocet 5-325 mg Tablet] 1 - 2 tab PO Q4H PRN #60 tablet MDD 10 06/17/18 Pantoprazole Sodium [Protonix -] 40 mg PO DAILY #40 tablet.ec 06/17/18 Sennosides/Docusate Sodium [Pericolace -] 2 tablet PO BID tablet 06/17/18 traMADol HCL [Ultram -] 50 mg PO Q4H PRN #90 tablet MDD 6 06/17/18
[2018-06-18] MEDS: ACETAMINOPHEN 325 MG TABLET (FP) PO SCH ×2 (04:00→10:20)
[2018-06-18] MEDS: traMADol HCL 50 MG TABLET PO SCH ×2 (04:45→10:21)
[2018-06-18 06:18] VITALS: BP 109/50; PULSE 70; TEMP 97.8
[2018-06-18] MEDS: LEVOTHYROXINE NA 125 MCG TABLET (FP) PO SCH (06:26)
[2018-06-18] MEDS: ASPIRIN 325 MG TABLET PO SCH (08:05)
[2018-06-18 08:42] LABS: HEMATOCRIT 32.1 % (32.4-45.2); HEMOGLOBIN 10.6 GM/dl (10.7-15.3); MCH 30.4 pg (25.7-33.7); MCHC 33.1 g/dl (32.0-36.0); MEAN CELL VOLUME 91.9 fl (80-96); PLATELET COUNT 247 K/MM3 (134-434); RBC 3.49 M/mm3 (3.60-5.2); RDW 12.2 % (11.6-15.6); WHITE BLOOD COUNT 7.7 K/mm3 (4.0-10.8)
[2018-06-18] MEDS: MULTIVITAMINS (DAILY MVI) TABLET (FP) PO SCH (10:21)
[2018-06-18] MEDS: CELECOXIB 200 MG CAPSULE PO SCH (10:21)
[2018-06-18] MEDS: GABAPENTIN 300 MG CAPSULE (FP) PO SCH (10:21)
[2018-06-18] MEDS: PANTOPRAZOLE 40 MG TABLET (FP) PO SCH (10:22)
[2018-06-18] MEDS: ASCORBIC ACID 500 MG TABLET (FP) PO SCH (10:22)
[2018-06-18] MEDS: SENNOSIDES/DOCUSATE COMBO (SENNA PLUS) TABLET (UD) PO SCH (10:22)
[2018-06-18] MEDS: oxyCODONE HCL 10 MG SUSTAINED ACTING TABLET PO SCH (10:22)
--- NOTE | 2018-06-22 14:56 | PATH ---
Surgical Pathology Report Patient Name: ELIDA DAWKINS Med. Rec. #: [id number] /Age/Gender: 1950 (Age: 67) / F Account: [id number] Location: [facility] MED[facility] Taken: 06/16/2018 Received: 06/16/2018 Reported: 06/22/2018 Physicians: Messi Bonilla M.D. Specimen(s) Received RIGHT FEMORAL HEAD Clinical History Right hip osteoarthritis Final Diagnosis FEMORAL HEAD, RIGHT, TOTAL HIP REPLACEMENT: DEGENERATIVE JOINT DISEASE. Electronically Signed Palmira Balderas M.D. Gross Description Received in formalin, labeled "right femoral head," is a 4.0 x 4.0 x 3.8 cm. femoral head with a 1.3 cm in length portion of femoral neck attached. The margin of resection is smooth. There is a 3.8 cm in greatest dimension area of eburnation present. The remaining articular surface is everett-yellow and diffusely granular. The underlying trabecular bone is yellow and hard. A area representative section is submitted in one cassette, following decalcification. /06/20/[address] [facility]06/20/2018
== END 2018-06-18 13:10 | disposition home health service (06) | DRG 470 ==
LOC: FM/S 09:07
PROVIDERS: ADMIT Student in an Organized Health Care Education/Training Program; ATTEND Student in an Organized Health Care Education/Training Program
PROC: 8E0W0CZ Robotic Assisted Procedure of Trunk Region, Open Approach (ICD-10-PCS; 2018-06-16)
PROC: 0SR90JA Replacement of Right Hip Joint with Synthetic Substitute, Uncemented, Open Approach (ICD-10-PCS; principal; 2018-06-16 14:11)
DX: M16.11 Unilateral primary osteoarthritis, right hip (principal); E03.9 Hypothyroidism, unspecified; M85.80 Other specified disorders of bone density and structure, unspecified site
CPT/HCPCS: 36415; 73523-TC-FY; 80048; 85027; 88304-TC; 88311-TC; 94760; 97116-GP; 97162-GP; J0131; J1100